=== PATIENT | female | born 1990 | race Caucasian/White ===

== ENCOUNTER → 2022-09-30 12:49 | Outpatient (BNVA) | payer OTHER, SELFPAY | PROVIDERS: Visit Provider Physician Assistant | DX: Z01.818 Encounter for other preprocedural examination (principal); E66.01 Morbid (severe) obesity due to excess calories; G89.29 Other chronic pain; F41.9 Anxiety disorder, unspecified; Z68.43 Body mass index [BMI] 50.0-59.9, adult | CPT/HCPCS: 99202 ==

== ENCOUNTER 2022-10-05 09:50 | Outpatient (REF) | payer OTHER, SELFPAY ==
--- NOTE | ~2022-10-05 | XR_ITS ---
EXAMINATION: XR CHEST CLINICAL INFORMATION: Bariatric service evaluation. E66.01. COMPARISON: None TECHNIQUE: 2 views of the chest were obtained. FINDINGS: Lungs clear. No hyperinflation. No airspace consolidation or groundglass opacity. The costophrenic sulci are clear. Heart size normal. Vascularity normal. The hilar and mediastinal contours are normal. Bony structures show mild loss of height due to adjacent mid thoracic vertebral bodies. No paraspinal soft tissue swelling. XR/XR chest 2V IMPRESSION: 1. Lungs clear. 2. Mild loss of height due to adjacent mid thoracic vertebral bodies. No paraspinal soft tissue swelling.
--- NOTE | 2022-10-05 09:59 | ECG_ITS ---
Test Reason : e66.01 Blood Pressure : / mmHG Vent. Rate : 073 BPM Atrial Rate : 073 BPM P-R Int : 134 ms QRS Dur : 074 ms QT Int : 390 ms P-R-T Axes : 023 050 044 degrees QTc Int : 429 ms Normal sinus rhythm with sinus arrhythmia Normal ECG No previous ECGs available Referred By: Juanita Rodriguez Electronically Signed By:TIFFANY VAUGHN MD
[2022-10-05 10:11] LABS: MANUAL DIFF FLAG NO
[2022-10-05 10:43] LABS: Basophils Percent Auto 0.4 % (0-2); Eosinophils Absolute Auto 0.2 X10*3/uL (0.0-0.4); Eosinophils Percent Auto 2.5 % (0-4); Hematocrit 40.5 % (37.0-47.0); Imm Gran Abs Auto 0.08 X10*3/uL (0.00-0.03); Lymphocytes Absolute Auto 1.9 X10*3/uL (1.2-4.9); Lymphocytes Percent Auto 22.3 % (20-40); Mean Corpuscular HGB Conc 32.1 g/dl (31.0-35.0); Mean Corpuscular Hemoglobin 28.9 pg (27.0-33.0); Mean Platelet Volume 9.6 fL (9.4-12.3); Monocytes Absolute Auto 0.5 X10*3/uL (0.1-1.2); Neutrophils Absolute Auto 5.7 x10*3/uL (2.0-8.3); Neutrophils Percent Auto 67.8 % (45-73); Platelet Count 388 X10*3/uL (160-400); Red Cell Distribution Width 12.2 % (11.0-16.0); White Blood Count 8.4 X10*3/uL (4.8-10.8)
[2022-10-05 11:43] LABS: Vitamin B12 339 pg/mL (200-900)
[2022-10-05 11:45] LABS: Estimated Average Glucose 108 mg/dL; Hemoglobin A1c % 5.4 %
[2022-10-05 11:52] LABS: Alanine Aminotransferase 19 U/L (0-31); Albumin Level 4.3 g/dL (3.5-5.0); Alkaline Phosphatase 79 U/L (39-117); Anion Gap 14 (12-20); Aspartate Amino Transferase 15 U/L (5-31); Bilirubin Total 0.3 mg/dL (0.0-1.0); Blood Urea Nitrogen 15 mg/dL (9-16); C Reactive Protein 0.58 mg/dL (< or = 0.50); Calcium 9.3 mg/dL (8.4-10.2); Carbon Dioxide 27 mmol/L (22-29); Chloride 104 mmol/L (96-108); Cholesterol 191 mg/dL; Estimated Glomerular Filt Rate > 60; Ferritin 118 ng/mL (10-122); Glucose Random 95 mg/dL (60-115); HDL Cholesterol 42 mg/dL; Insulin 22 uU/mL (2-29); Iron 78 mcg/dL (30-160); LDL Cholesterol Calculated 127 mg/dl; Percent Iron Saturation 26 % (15-50); Potassium 5.1 mmol/L (3.3-5.1); Sodium 140 mmol/L (135-145); TSH reflex Free T4 1.68 uIU/mL (0.32-4.0); Total Iron Binding Capacity 295 mcg/dL (228-428); Total Protein 7.5 g/dL (6.5-8.0); Triglycerides 112 mg/dL; Unsaturated Iron Binding 217 ug/dL; Vitamin D 25-OH Total 24.1 ng/mL (>30)
[2022-10-06 12:51] LABS: Calcium (PTHI) 9.4 mg/dL (8.6-10.2); PTHI 68 pg/mL (16-77)
[2022-10-08 00:21] LABS: Zinc 77 mcg/dL (60-130)
[2022-10-08 19:47] LABS: Vitamin A 54 mcg/dL (38-98)
[2022-10-12 11:52] LABS: Vitamin B1 12 nmol/L (8-30)
== END 2022-10-05 09:51 | disposition home or self-care (01) ==
LOC: HO.LAB 09:50
PROVIDERS: Visit Provider Physician Assistant
DX: Z01.818 Encounter for other preprocedural examination (principal); E66.01 Morbid (severe) obesity due to excess calories
CPT/HCPCS: 36415; 71046; 80053; 80061; 82306; 82607; 82728; 82746; 83036; 83525; 83540; 83970; 84425; 84443; 84590; 84630; 85025; 86140; 93005

== ENCOUNTER → 2022-11-11 09:48 | Outpatient (BNVA) | payer OTHER, SELFPAY | PROVIDERS: Visit Provider Physician Assistant | DX: Z11.0 Encounter for screening for intestinal infectious diseases (principal); E66.01 Morbid (severe) obesity due to excess calories; G89.29 Other chronic pain | CPT/HCPCS: 99211; 99212 ==

== ENCOUNTER 2022-11-11 15:16 | Outpatient (REF) | payer OTHER, SELFPAY ==
[2022-11-13 09:03] LABS: H Pylori Breath Test Negative (Negative)
== END 2022-11-11 15:17 | disposition home or self-care (01) ==
LOC: HO.LNP 15:16
PROVIDERS: Visit Provider Physician Assistant
DX: Z01.818 Encounter for other preprocedural examination (principal); E66.01 Morbid (severe) obesity due to excess calories
CPT/HCPCS: 83013

== ENCOUNTER → 2022-11-18 11:40 | Outpatient (BNVA) | payer OTHER, SELFPAY | PROVIDERS: Visit Provider Dietitian, Registered | DX: E66.01 Morbid (severe) obesity due to excess calories (principal) | CPT/HCPCS: 97802 ==

== ENCOUNTER → 2022-12-02 10:00 | Outpatient (BNVA) | payer OTHER, SELFPAY | PROVIDERS: Visit Provider Physician Assistant | DX: Z13.89 Encounter for screening for other disorder (principal) ==

== ENCOUNTER 2022-12-08 09:38 | Outpatient (REF) | payer OTHER, SELFPAY ==
--- NOTE | ~2022-12-08 | US_ITS ---
EXAMINATION: US COMPLETE ABDOMEN WITH LIVER ELASTOGRAPHY CLINICAL INFORMATION: Morbid obesity due to excess calories. COMPARISON: None. TECHNIQUE: Real-time imaging of the abdominal viscera. Noninvasive ultrasound liver fibrosis assessment is performed using Nancy ElastPQ point quantification shear wave elastography (2D-SWE) with a C5-2 MHz transducer. Multiple elastography samples are obtained. FINDINGS: PANCREAS: Normal. The visualized pancreatic head and body are normal in appearance. The remainder of the pancreas is obscured from visualization by the overlying bowel gas. ABDOMINAL AORTA: The proximal, middle, and distal aortic segments are normal in caliber. INFERIOR VENA CAVA: Visualized portions are normal. LIVER: Normal. The liver demonstrates normal size, contour and echogenicity. No focal lesion or intrahepatic biliary duct dilatation. The right lobe measures 19.6 cm in length. The left lobe measures 12.4 cm in length. Portal flow is hepatopedal. Shear wave liver elastography median stiffness is 1.58 m/s (reference: normal median stiffness is 1.3 m/s or less). IQR/median stiffness to assess sampling precision is 0.14 (reference: good quality data set is IQR/median stiffness of 0.15 or less). GALLBLADDER: There are multiple echogenic stones without wall thickening. The stones measure 2.1 x 0.9 x 2.2 cm and 2.3 x 0.8 x 2.1 cm. COMMON BILE DUCT: Normal in caliber measuring 0.4 cm in diameter. RIGHT KIDNEY: Normal. No hydronephrosis. No renal calculi or focal parenchymal lesions. The kidney measures 11.1 cm in maximum dimension. LEFT KIDNEY: Normal. No hydronephrosis. No renal calculi or focal parenchymal lesions. The kidney measures 11.5 cm in maximum dimension. SPLEEN: Normal. The spleen measures 9.8 cm in maximum dimension. FREE FLUID: None. US/US abdomen comp w elastography IMPRESSION: 1. Diffuse echogenic liver without focal lesion. 2. Cholelithiasis without wall thickening. 3. Liver elastography: Liver Elastography measures 1.58 m/s corresponding to cACLD (ruled out). REFERENCE: Society of Radiologists in Ultrasound Liver Stiffness Thresholds (2020): LIVER STIFFNESS THRESHOLDS: *Liver Stiffness equal or less than 1.3 m/s: High probability of being normal. *Liver Stiffness less than 1.7 m/s: In the absence of other known clinical signs, rules out compensated advanced chronic liver disease. *Liver Stiffness 1.7-2.1 m/s: Suggestive of compensated advanced chronic liver disease but need further test for confirmation. *Liver Stiffness over 2.1 m/s: Rules in compensated advanced chronic liver disease. *Liver Stiffness over 2.4 m/s: Suggestive of clinically significant portal hypertension. QUALITY OF DATA SET: *IQR/Median value equal or less than 0.15 implies a quality data set. *IQR/Median value over 0.15 implies a poor quality data set. SIGNIFICANT CHANGE FROM PRIOR EXAM: Significant change if liver stiffness measurement is 10% or greater from prior exam. OTHER CONSIDERATIONS: The stage of liver fibrosis may be overestimated in the setting of acute hepatitis, liver inflammation, elevated liver function tests, hepatic vascular congestion, obstructive cholestasis, non-fasting state, and infiltrative diseases such as amyloidosis and lymphoma. In some patients with NAFLD, the liver stiffness thresholds for compensated advanced chronic liver disease may be lower. In causes other than viral hepatitis and NAFLD, liver stiffness thresholds are not well established.
--- NOTE | ~2022-12-08 | FL_ITS ---
EXAMINATION: UPPER GI EXAMINATION XR CHEST, PA AND LATERAL CLINICAL INFORMATION: Preop. Morbid obesity. COMPARISON: None. TECHNIQUE: PA and lateral chest. Air-contrast upper GI examination. FINDINGS: There is no evidence of acute parenchymal disease, pneumothorax, or pleural effusion. Heart is normal size. No evidence of pulmonary edema. There is normal apposition of the focal cords while saying E. There is normal elevation of the soft palate while saying candy. Patient swallowed thin and thick barium and half-inch diameter barium tablet without difficulty. No nasopharyngeal reflux or tracheal aspiration identified. There is normal esophageal motility without evidence of persistent stricture or ulcerations/erosions. Minimal sliding hiatal hernia was identified. There is gastroesophageal reflux spontaneously during the study to the level of the thoracic inlet, which cleared readily. The stomach demonstrated normal distensibility without evidence of abnormal mass or ulceration. There was no delay in gastric emptying. The duodenal bulb and sweep appeared unremarkable. FLUOROSCOPY TIME: 1.6 minutes. DOSE AREA PRODUCT: 22.965 Gy-cm2 (moss-centimeter squared). FL/FL upper GI w air IMPRESSION: No acute parenchymal disease within the chest. Spontaneous gastroesophageal reflux to the level of the thoracic inlet, which cleared rapidly.
== END 2022-12-08 09:39 | disposition home or self-care (01) ==
LOC: HO.US 09:38
PROVIDERS: Visit Provider Physician Assistant
DX: Z01.818 Encounter for other preprocedural examination (principal); E66.01 Morbid (severe) obesity due to excess calories
CPT/HCPCS: 71046; 74246; 76705; 76981

== ENCOUNTER → 2022-12-09 13:00 | Outpatient (BNVA) | payer OTHER, SELFPAY | PROVIDERS: Visit Provider Counselor Mental Health | DX: F32.A Depression, unspecified (principal); F41.9 Anxiety disorder, unspecified; E66.01 Morbid (severe) obesity due to excess calories | CPT/HCPCS: 90791 ==

== ENCOUNTER → 2022-12-23 10:59 | Outpatient (BNVA) | payer OTHER, SELFPAY | PROVIDERS: Visit Provider Physician Assistant | DX: E66.01 Morbid (severe) obesity due to excess calories (principal); G89.29 Other chronic pain; F32.A Depression, unspecified ==

== ENCOUNTER → 2022-12-29 13:20 | Outpatient (BNVA) | payer OTHER, SELFPAY | PROVIDERS: PCP Registered Nurse; Visit Provider Counselor Mental Health | DX: F32.A Depression, unspecified (principal); F41.9 Anxiety disorder, unspecified; E66.01 Morbid (severe) obesity due to excess calories | CPT/HCPCS: 90834 ==

== ENCOUNTER → 2023-01-19 10:08 | Outpatient (BNVA) | payer OTHER, SELFPAY | PROVIDERS: PCP Registered Nurse; Referring Provider Registered Nurse; Visit Provider Counselor Mental Health | DX: F32.A Depression, unspecified (principal); F41.9 Anxiety disorder, unspecified; E66.01 Morbid (severe) obesity due to excess calories | CPT/HCPCS: 90834 ==

== ENCOUNTER → 2023-01-21 13:30 | Outpatient (BNVA) | payer OTHER, SELFPAY | PROVIDERS: PCP Registered Nurse; Visit Provider Physician Assistant | DX: Z13.89 Encounter for screening for other disorder (principal) ==

== ENCOUNTER → 2023-02-21 09:30 | Outpatient (BNVA) | payer MEDICAID, SELFPAY | PROVIDERS: PCP Registered Nurse; Visit Provider Physician Assistant ==

== ENCOUNTER → 2023-03-01 10:00 | Outpatient (BNVA) | payer OTHER, MEDICAID, SELFPAY | PROVIDERS: PCP Registered Nurse; Visit Provider Counselor Mental Health ==

== ENCOUNTER → 2023-03-14 11:30 | Outpatient (BNVA) | payer OTHER, MEDICAID, SELFPAY | PROVIDERS: PCP Registered Nurse; Visit Provider Counselor Mental Health ==

== ENCOUNTER → 2023-03-28 11:00 | Outpatient (BNVA) | payer OTHER, MEDICAID, SELFPAY | PROVIDERS: PCP Registered Nurse; Visit Provider Counselor Mental Health | DX: F32.A Depression, unspecified (principal); F41.9 Anxiety disorder, unspecified; E66.01 Morbid (severe) obesity due to excess calories ==

== ENCOUNTER → 2023-05-02 15:30 | Outpatient (BNVA) | payer MEDICAID, SELFPAY | PROVIDERS: PCP Registered Nurse; Visit Provider Physician Assistant ==

== ENCOUNTER → 2023-05-10 14:00 | Outpatient (BNVA) | payer OTHER, MEDICAID, SELFPAY | PROVIDERS: PCP Registered Nurse; Visit Provider Counselor Mental Health ==

== ENCOUNTER 2023-06-01 13:02 | Outpatient (AMB) | payer MEDICAID, SELFPAY ==
--- NOTE | 2023-06-01 11:28 | MHC.OFFVISWM ---
Intake VS Expanded 06/01/23 12:32 Height 5 ft 1 in Weight 283 lb BMI 53.5 Intake Visit Reasons: VIDEO F/U SWL Allergies No Known Allergies Allergy (Verified 11/11/22 10:30) HPI HPI Comments History of Present Illness Details 32 yo woman started our program?since Sep 2022 at 274.2 lbs and had gained 12 lbs since stopping our program. Was having family issues and personal issues, supposed to see Radha weekly but was unable to. She took a short break from our program and restarted on May 02 at 287 lbs. All pre operative work up completed except for appointments. she saw Radha on 05/12 and was supposed to have follow up - she texted Radha today to reschedule. meal plan: 9am - Ensure Alcides or Premier 1 pm - shake 4pm- shake OR fish and vegetables 8pm - - not having yogurt or bar Exercise - bike - 30 minutes twice a day, daily - hurt her right shoulder with this. Walking - distance? time? calories? not using her pedometer destini. Goal is 247 lbs before surgery PFSH Surgical History Hx of appendectomy Hx of carpal tunnel repair Hx of section Family History Mother No problems noted. Father No problems noted. Sister No problems noted. Sister No problems noted. Sister No problems noted. Sister No problems noted. Son Asthma Social History Alcohol intake: current Alcohol intake frequency: holidays/special occasions only Patient Tobacco Use Status: Never used Tobacco Substance Use Type: Marijuana Assessment & Plan Assessment & Plan (1) Morbid obesity: Code(s): E66.01 - Morbid (severe) obesity due to excess calories Plan: Pt has restarted meal plan - and has lost 4 lbs so far - goal weight is 247lbs lbs before surgery. Needs to ahve bar or yogurt at 8pm daily and meal daily, 2 shakes. Exercise - walk with pedometer destini 2 miles in 45 minutes for 300 calories burned daily. Wait until shoulder heals before using bike again - then once per day. Needs to have appt - if she does not hear back from Radha I told her to call the office to reschedule the appt. Next appt 3 weeks with me. Patient is still morbidly obese and is not considered stable at this time. I spent 30 minutes in total speaking with the patient via video conference counseling , reviewing records and charting in patients chart. . Telehealth Telehealth Location of provider rendering services: practice address Location of patient: address on file Patient Identification confirmed using: Name, : Yes Telehealth method: video Patient verbally consented to treatment: Yes Patient verbally consented to billing insurance company: Yes Patient informed of any privacy concerns related to visit: Yes Coding Level of Care Code Tele Est Pt Level 4 (99496) Diagnoses Morbid obesity E66.01
[2023-06-01 12:32] VITALS: BMI 53.5
== END 2023-06-01 13:07 | disposition home or self-care (01) ==
LOC: HO.HBS 13:02
PROVIDERS: PCP Registered Nurse; Visit Provider Physician Assistant
DX: E66.01 Morbid (severe) obesity due to excess calories (principal)
CPT/HCPCS: 99214

== ENCOUNTER 2023-06-28 15:33 | Outpatient (AMB) | payer MEDICAID, SELFPAY ==
--- NOTE | 2023-06-28 15:41 | MHC.WMTHER ---
Intake Intake Visit Reasons: VIDEO f/u Allergies No Known Allergies Allergy (Verified 11/11/22 10:30) PFSH Surgical History Hx of appendectomy Hx of carpal tunnel repair Hx of section Family History Mother No problems noted. Father No problems noted. Sister No problems noted. Sister No problems noted. Sister No problems noted. Sister No problems noted. Son Asthma Social History Alcohol intake: current Alcohol intake frequency: holidays/special occasions only Patient Tobacco Use Status: Never used Tobacco Substance Use Type: Marijuana Behavioral Health Assessment Weight Management Therapy Therapy Notes Details Patient has decided to not give up and restart the program. This session included motivational interviewing. Pt discussed what life could look like if she does not work on her health. She reported doing well since she restarted. . Patient is looking to have weight loss surgery to help improve her health and quality of life. She stated that due to depression because of her weight she was referred to a therapist at her primary care doctors office named Mariangel however has not seen her in a month. Also previous therapy at [facility] when she first moved here from [place]. No previous hospital admissions and no history of problems with drugs or alcohol. Presenting Concerns Referral Source provider Reason for referral weight loss surgery evaluation Precipitating Event obesity Living Situation Current Living Situation Rent At risk of losing current housing? No Satisfied with current living situation? Yes Comments Patient lives alone with her son who is 8 years old and also spends a lot of time with her boyfriend and helps care for his two kids. Food/Weight/Diet Expectations of change weight loss History/Relationship with food Patient reported that she cooks often and she was often eat rice, pasta, bread, meat, pizza and other fast food on the weekends, she would often skip meals during the day and then eat large portions for dinner and then corn flakes cereal after dinner prior to sleep. Also would drink juice daily. History/Relationship with weight Patient reported that she has always been overweight even as a child and was the only one in her family that is. Patient stated that at her lowest she was 198lbs when she first moved here in 2010. At her heaviest she was 299lbs. History/Relationship with dieting Patient attempted the [facility] Weight Loss program and lost around 60lbs however due to pandemic, she was not able to have the surgery. Binge Eating Do you frequently eat large amounts of food in short periods of time, not feeling physically hungry? No Do you feel out of control when you eat a large amount of food in a short period of time? No Do you eat large amounts of food rapidly and typically alone? Yes Night Eating Do you wake up at least once during the night to eat? No If you wake up in the night, do you find that it is necessary to eat something in order to fall back asleep? No Do you have little or no appetite in the morning and feel very hungry in the evening, often overeating between dinner and when you go to bed? Yes Social History Family history and relationship Patient reported being raised in [place] and stated that her father abandoned them. She stated that her mother was not around much, she did not work so Robert had to start working at age 11 to pay bills and take care of her family. 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 none Education Currently enrolled in educational program? No Interested in further educational program? 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 Employment Employment Status Unemployed Wants help to find employment? No Financial Situation Describe current financial situation Often struggles with finance Financial assistance? None Service Service? No Mental Health and Addiction Treatment Current/Past substance abuse? No Current/Past addictive behavior concerns? No Medical and Physical Health Summary Physical exam in the last year? Yes Pain Screening Current pain? Yes Pain in the last few months? Yes Comments knee pain Medications Is the patient compliant with medications? Not applicable Does the patient have Apple Guardian in place? Not applicable Does the patient use complimentary health approaches? No Trauma/Abuse History History of trauma? Yes Assessment & Plan Assessment & Plan (1) Depression: Code(s): F32.A - Depression, unspecified (2) Anxiety: Code(s): F41.9 - Anxiety disorder, unspecified (3) Morbid obesity: Code(s): E66.01 - Morbid (severe) obesity due to excess calories Plan Patients' life stressors have improved and she is now ready to commit to the program and have surgery. She will be seen again. Telehealth Telehealth Location of provider rendering services: practice address Location of patient: address on file Patient Identification confirmed using: Name, : Yes Telehealth method: video Patient verbally consented to treatment: Yes Patient verbally consented to billing insurance company: Yes Patient informed of any privacy concerns related to visit: Yes Minutes spent on Phone/Video with Pt.: 25 Coding Level of Care Code Tele Psytx 30 mins (36509) Diagnoses Depression F32.A Anxiety F41.9 Morbid obesity E66.01 Time Spent (min) 25
== END 2023-06-28 15:37 | disposition home or self-care (01) ==
LOC: HO.HBST 15:33
PROVIDERS: PCP Registered Nurse; Visit Provider Counselor Mental Health
DX: F32.A Depression, unspecified (principal); F41.9 Anxiety disorder, unspecified; E66.01 Morbid (severe) obesity due to excess calories
CPT/HCPCS: 90832

== ENCOUNTER → 2023-06-28 15:33 | Outpatient (BNVA) | payer MEDICAID, SELFPAY | PROVIDERS: PCP Registered Nurse; Visit Provider Counselor Mental Health ==

== ENCOUNTER 2023-07-19 13:03 | Outpatient (AMB) | payer MEDICAID, SELFPAY ==
--- NOTE | 2023-08-02 10:57 | A.OFFWM_ITS ---
Intake Intake Visit Reasons: VIDEO BH F/U Allergies No Known Allergies Allergy (Verified 11/11/22 10:30) PFSH Surgical History Hx of appendectomy Hx of carpal tunnel repair Hx of section Family History Mother No problems noted. Father No problems noted. Sister No problems noted. Sister No problems noted. Sister No problems noted. Sister No problems noted. Son Asthma Social History Alcohol intake: current Alcohol intake frequency: holidays/special occasions only Patient Tobacco Use Status: Never used Tobacco Substance Use Type: Marijuana Behavioral Health Assessment Weight Management Therapy Therapy Notes Details Patient continues to struggle, believes that now that her kids are in school she can really focus on herself. She was tearful in talking about her rel with her partner who children she has been raising along wth her son. She feels like she is being used, he would not be able to care for them if not for her. She wants to return back to her apartment but her son is very bonded with the other two kids and will be very hard for him. She feel lost on what to do. Patient is looking to have weight loss surgery to help improve her health and q uality of life. She stated that due to depression because of her weight she was referred to a therapist at her primary care doctors office named Mariangel however has not seen her in a month. Also previous therapy at [facility] when she first moved here from [place]. No previous hospital admissions and no history of problems with drugs or alcohol. Presenting Concerns Referral Source provider Reason for referral weight loss surgery evaluation Precipitating Event obesity Living Situation Current Living Situation Rent At risk of losing current housing? No Satisfied with current living situation? Yes Comments Patient lives alone with her son who is 8 years old and also spends a lot of time with her boyfriend and helps care for his two kids. Food/Weight/Diet Expectations of change weight loss History/Relationship with food Patient reported that she cooks often and she was often eat rice, pasta, bread, meat, pizza and other fast food on the weekends, she would often skip meals during the day and then eat large portions for dinner and then corn flakes cereal after dinner prior to sleep. Also would drink juice daily. History/Relationship with weight Patient reported that she has always been overweight even as a child and was the only one in her family that is. Patient stated that at her lowest she was 198lbs when she first moved here in 2010. At her heaviest she was 299lbs. History/Relationship with dieting Patient attempted the [facility] Weight Loss program and lost around 60lbs however due to pandemic, she was not able to have the surgery. Binge Eating Do you frequently eat large amounts of food in short periods of time, not feeling physically hungry? No Do you feel out of control when you eat a large amount of food in a short period of time? No Do you eat large amounts of food rapidly and typically alone? Yes Night Eating Do you wake up at least once during the night to eat? No If you wake up in the night, do you find that it is necessary to eat something in order to fall back asleep? No Do you have little or no appetite in the morning and feel very hungry in the evening, often overeating between dinner and when you go to bed? Yes Social History Family history and relationship Patient reported being raised in [place] and stated that her father abandoned them. She stated that her mother was not around much, she did not work so Robert had to start working at age 11 to pay bills and take care of her family. 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 none Education Currently enrolled in educational program? No Interested in further educational program? 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 Employment Employment Status Unemployed Wants help to find employment? No Financial Situation Describe current financial situation Often struggles with finance Financial assistance? None Service Service? No Mental Health and Addiction Treatment Current/Past substance abuse? No Current/Past addictive behavior concerns? No Medical and Physical Health Summary Physical exam in the last year? Yes Pain Screening Current pain? Yes Pain in the last few months? Yes Comments knee pain Medications Is the patient compliant with medications? Not applicable Does the patient have Apple Guardian in place? Not applicable Does the patient use complimentary health approaches? No Trauma/Abuse History History of trauma? Yes Assessment & Plan Assessment & Plan (1) Depression: Code(s): F32.A - Depression, unspecified (2) Anxiety: Code(s): F41.9 - Anxiety disorder, unspecified (3) Morbid obesity: Code(s): E66.01 - Morbid (severe) obesity due to excess calories Plan Patient is struggling with sig. life stressors that keep her awake at night and unable to focus on herself. She does not want to give up and is trying to continue with her goals in the program however has made minimal progress. She will be seen again. Telehealth Telehealth Location of provider rendering services: other Location of patient: other Patient Identification confirmed using: Name, : Yes Telehealth method: video Patient verbally consented to treatment: Yes Patient verbally consented to billing insurance company: Yes Patient informed of any privacy concerns related to visit: Yes Minutes spent on Phone/Video with Pt.: 40 Coding Level of Care Code Tele Psytx 45 mins (31247) Diagnoses Depression F32.A Anxiety F41.9 Morbid obesity E66.01 Time Spent (min) 40
== END 2023-08-02 10:57 | disposition home or self-care (01) ==
PROVIDERS: PCP Registered Nurse; Visit Provider Counselor Mental Health
DX: F32.A Depression, unspecified (principal); F41.9 Anxiety disorder, unspecified; E66.01 Morbid (severe) obesity due to excess calories
CPT/HCPCS: 90834

== ENCOUNTER → 2023-07-19 13:03 | Outpatient (BNVA) | payer MEDICAID, SELFPAY | PROVIDERS: PCP Registered Nurse; Visit Provider Counselor Mental Health ==

== ENCOUNTER 2023-08-11 15:30 | Outpatient (AMB) | payer MEDICAID, SELFPAY ==
--- NOTE | 2023-08-11 15:58 | A.OFFVIS_ITS ---
Intake Intake Visit Reasons: VIDEO F/U SWL Allergies No Known Allergies Allergy (Verified 11/11/22 10:30) HPI HPI Comments History of Present Illness Details [employer] appt 287 lbs, pre op completed. Is recovering from COVID, went off meal plan for 2 weeks, and no money for shakes. Re bought them on 08/01. Has a scale - but not weighing herself in 2 months. Radha appts weekly and follow up is scheduled. Meal plan 9am and 1pm - shakes 4:30 pm fish and vegetables 7:30 pm -yogurt Exercise - walking with her step mother. 30 minutes 3 d/ week. PFSH Surgical History Hx of appendectomy Hx of carpal tunnel repair Hx of section Family History Mother No problems noted. Father No problems noted. Sister No problems noted. Sister No problems noted. Sister No problems noted. Sister No problems noted. 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 Will send me her weight electronically tomorrow. Will continue appts with Radha - finds them very helpful. No changes to meal plan. Exercise - will increase once she is recovered from COVID. Next appt with me in 3 weeks. Patient is still morbidly obese and is not considered stable at this time. I spent 15 minutes in total speaking with the patient via video conference counseling , reviewing records and charting in patients chart. . Telehealth Telehealth Location of provider rendering services: practice address Location of patient: address on file Patient Identification confirmed using: Name, : Yes Telehealth method: voice only Patient verbally consented to treatment: Yes Patient verbally consented to billing insurance company: Yes Coding Level of Care Code Tele Est Pt Level 3 (38869) Diagnoses Morbid obesity E66.01
== END 2023-08-11 16:08 | disposition home or self-care (01) ==
LOC: HO.HBS 15:59
PROVIDERS: PCP Registered Nurse; Visit Provider Physician Assistant
DX: E66.01 Morbid (severe) obesity due to excess calories (principal)
CPT/HCPCS: 99213

== ENCOUNTER → 2023-08-11 15:30 | Outpatient (BNVA) | payer MEDICAID, SELFPAY | PROVIDERS: PCP Registered Nurse; Visit Provider Physician Assistant ==

== ENCOUNTER 2023-09-15 16:00 | Outpatient (AMB) | payer MEDICAID, SELFPAY ==
--- NOTE | 2023-09-15 16:24 | MHC.OFFVISWM ---
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 Has had a migraine for 3 days without relief, not in good place mentally not following our meal or exercise plans and has gained weight. Wants to fidn a therapist abut states no one is calling her back. Radha appts weekly previously, none recently. PFSH Surgical History Hx of appendectomy Hx of carpal tunnel repair Hx of section Family History Mother No problems noted. Father No problems noted. Sister No problems noted. Sister No problems noted. Sister No problems noted. Sister No problems noted. Son Asthma Social History Alcohol intake: current Alcohol intake frequency: holidays/special occasions only Patient Tobacco Use Status: Never used Tobacco Substance Use Type: Marijuana Physical Exam Vital Signs: BMI result Body Mass Index 54.8 Assessment & Plan Assessment & Plan (1) Morbid obesity: Code(s): E66.01 - Morbid (severe) obesity due to excess calories Plan: Meal and exercise plans were not discussed today. She is being scheduled for a follow up with Radha and is in need of longer term therapy per her request. Will resume SWL program when she feels ready. Patient is still morbidly obese and is not considered stable at this time. I spent 15 minutes in total speaking with the patient via video conference counseling , reviewing records and charting in patients chart. . (2) Depression: Code(s): F32.A - Depression, unspecified Coding Level of Care Code Tele Est Pt Level 3 (46418) Diagnoses Morbid obesity E66.01 Depression F32.A
[2023-09-15 16:26] VITALS: BMI 54.8
== END 2023-09-15 16:55 | disposition home or self-care (01) ==
LOC: HO.HBS 16:29
PROVIDERS: PCP Registered Nurse; Visit Provider Physician Assistant
DX: E66.01 Morbid (severe) obesity due to excess calories (principal); F32.A Depression, unspecified
CPT/HCPCS: 99213

== ENCOUNTER → 2023-09-15 16:00 | Outpatient (BNVA) | payer MEDICAID, SELFPAY | PROVIDERS: PCP Registered Nurse; Visit Provider Physician Assistant | DX: E66.01 Morbid (severe) obesity due to excess calories (principal) ==

== ENCOUNTER 2023-11-28 11:00 | Outpatient (AMB) | payer MEDICAID, SELFPAY ==
--- NOTE | 2023-11-28 10:50 | MHC.OFFVISWM ---
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 She has not been seen by a provider in our program since then and is scheduled for Nov 30. Has restarted meal plan on November 21. Pre op work up was completed previousl 9am - Premeir RTD shake 1pm - same shake 4-5pm - fish and vegetables - not measured Exercise - plans to start this week at the gym [facility] Surgical History Hx of appendectomy Hx of carpal tunnel repair Hx of section Family History Mother No problems noted. Father No problems noted. Sister No problems noted. Sister No problems noted. Sister No problems noted. Sister No problems noted. Son Asthma Social History Alcohol intake: current Alcohol intake frequency: holidays/special occasions only Patient Tobacco Use Status: Never used Tobacco Substance Use Type: Marijuana Assessment & Plan Assessment & Plan (1) Morbid obesity: Code(s): E66.01 - Morbid (severe) obesity due to excess calories Plan: 9am - will switch to Premeir powder with water 1 pm- same shake 5 pm - 12 forks of protein and 12 forks of vegetables 8pm- last shake Gym - treadmill - speed 2.5, incline 1 - 4 (3 minutes) - 300 calories - 5d/ week. 2 d/wk MM videos 30 minutes. Text me weekly weights and questions. Next appt 1 month video with me - will need labs reordered etc... when progressing. Patient is still morbidly obese and is not considered stable at this time. I spent 25 minutes in total speaking with the patient via video conference counseling , reviewing records and charting in patients chart. . (2) Depression: Code(s): F32.A - Depression, unspecified Plan: has appt with Radha in 2 days, follow up per Radha Telehealth Telehealth Location of provider rendering services: practice address Location of patient: address on file Patient Identification confirmed using: Name, : Yes Telehealth method: video Patient verbally consented to treatment: Yes Patient verbally consented to billing insurance company: Yes Patient informed of any privacy concerns related to visit: Yes Coding Level of Care Code Tele Est Pt Level 4 (99617) Diagnoses Morbid obesity E66.01 Depression F32.A
[2023-11-28 11:03] VITALS: BMI 57.6
== END 2023-11-28 11:15 | disposition home or self-care (01) ==
LOC: HO.HBS 11:13
PROVIDERS: PCP Registered Nurse; Visit Provider Physician Assistant
DX: E66.01 Morbid (severe) obesity due to excess calories (principal); F32.A Depression, unspecified
CPT/HCPCS: 99214

== ENCOUNTER → 2023-11-28 11:00 | Outpatient (BNVA) | payer MEDICAID, SELFPAY | PROVIDERS: PCP Registered Nurse; Visit Provider Physician Assistant ==

== ENCOUNTER 2023-11-30 12:43 | Outpatient (AMB) | payer MEDICAID, SELFPAY ==
--- NOTE | 2023-12-09 13:10 | MHC.WMTHER ---
Intake Intake Visit Reasons: VIDEO BH F/U Allergies No Known Allergies Allergy (Verified 11/11/22 10:30) PFSH Surgical History Hx of appendectomy Hx of carpal tunnel repair Hx of section Family History Mother No problems noted. Father No problems noted. Sister No problems noted. Sister No problems noted. Sister No problems noted. Sister No problems noted. Son Asthma Social History Alcohol intake: current Alcohol intake frequency: holidays/special occasions only Patient Tobacco Use Status: Never used Tobacco Substance Use Type: Marijuana Behavioral Health Assessment Weight Management Therapy Therapy Notes Details Patient has been sick, continues to work on meeting her goals within the program. Spoke extensively about her why and the effects of letting herself go, feeling unhealthy and depressed. Patient is looking to have weight loss surgery to help improve her health and quality of life. She stated that due to depression because of her weight she was referred to a therapist at her primary care doctors office named Mariangel however has not seen her in a month. Also previous therapy at [facility] when she first moved here from [place]. No previous hospital admissions and no history of problems with drugs or alcohol. Presenting Concerns Referral Source provider Reason for referral weight loss surgery evaluation Precipitating Event obesity Living Situation Current Living Situation Rent At risk of losing current housing? No Satisfied with current living situation? Yes Comments Patient lives alone with her son who is 8 years old and also spends a lot of time with her boyfriend and helps care for his two kids. Food/Weight/Diet Expectations of change weight loss History/Relationship with food Patient reported that she cooks often and she was often eat rice, pasta, bread, meat, pizza and other fast food on the weekends, she would often skip meals during the day and then eat large portions for dinner and then corn flakes cereal after dinner prior to sleep. Also would drink juice daily. History/Relationship with weight Patient reported that she has always been overweight even as a child and was the only one in her family that is. Patient stated that at her lowest she was 198lbs when she first moved here in 2010. At her heaviest she was 299lbs. History/Relationship with dieting Patient attempted the [facility] Weight Loss program and lost around 60lbs however due to pandemic, she was not able to have the surgery. Binge Eating Do you frequently eat large amounts of food in short periods of time, not feeling physically hungry? No Do you feel out of control when you eat a large amount of food in a short period of time? No Do you eat large amounts of food rapidly and typically alone? Yes Night Eating Do you wake up at least once during the night to eat? No If you wake up in the night, do you find that it is necessary to eat something in order to fall back asleep? No Do you have little or no appetite in the morning and feel very hungry in the evening, often overeating between dinner and when you go to bed? Yes Social History Family history and relationship Patient reported being raised in [place] and stated that her father abandoned them. She stated that her mother was not around much, she did not work so Robert had to start working at age 11 to pay bills and take care of her family. 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 none Education Currently enrolled in educational program? No Interested in further educational program? 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 Employment Employment Status Unemployed Wants help to find employment? No Financial Situation Describe current financial situation Often struggles with finance Financial assistance? None Service Service? No Mental Health and Addiction Treatment Current/Past substance abuse? No Current/Past addictive behavior concerns? No Medical and Physical Health Summary Physical exam in the last year? Yes Pain Screening Current pain? Yes Pain in the last few months? Yes Comments knee pain Medications Is the patient compliant with medications? Not applicable Does the patient have Apple Guardian in place? Not applicable Does the patient use complimentary health approaches? No Trauma/Abuse History History of trauma? Yes Assessment & Plan Assessment & Plan (1) Depression: Code(s): F32.A - Depression, unspecified (2) Anxiety: Code(s): F41.9 - Anxiety disorder, unspecified (3) Morbid obesity: Code(s): E66.01 - Morbid (severe) obesity due to excess calories Plan Patient is struggling with sig. life stressors that keep her awake at night and unable to focus on herself. She does not want to give up and is trying to continue with her goals in the program however has made minimal progress. She will be seen again. Telehealth Telehealth Location of provider rendering services: other Location of patient: address on file Patient Identification confirmed using: Name, : Yes Telehealth method: voice only Patient verbally consented to treatment: Yes Patient verbally consented to billing insurance company: Yes Patient informed of any privacy concerns related to visit: Yes Minutes spent on Phone/Video with Pt.: 25 Coding Level of Care Code Tele Psytx 30 mins (92696) Diagnoses Depression F32.A Anxiety F41.9 Morbid obesity E66.01 Time Spent (min) 25
== END 2023-12-09 13:10 | disposition home or self-care (01) ==
PROVIDERS: PCP Registered Nurse; Visit Provider Counselor Mental Health
DX: F32.A Depression, unspecified (principal); F41.9 Anxiety disorder, unspecified; E66.01 Morbid (severe) obesity due to excess calories
CPT/HCPCS: 90832

== ENCOUNTER → 2023-11-30 12:43 | Outpatient (BNVA) | payer MEDICAID, SELFPAY | PROVIDERS: PCP Registered Nurse; Visit Provider Counselor Mental Health ==

== ENCOUNTER 2023-12-14 10:26 | Outpatient (AMB) | payer OTHER, SELFPAY ==
--- NOTE | 2023-12-19 10:54 | A.OFFWM_ITS ---
Intake Intake Visit Reasons: (OV) BH F/U Allergies No Known Allergies Allergy (Verified 11/11/22 10:30) PFSH Surgical History Hx of appendectomy Hx of carpal tunnel repair Hx of section Family History Mother No problems noted. Father No problems noted. Sister No problems noted. Sister No problems noted. Sister No problems noted. Sister No problems noted. Son Asthma Social History Alcohol intake: current Alcohol intake frequency: holidays/special occasions only Patient Tobacco Use Status: Never used Tobacco Substance Use Type: Marijuana Behavioral Health Assessment Weight Management Therapy Therapy Notes Details Patient discussed her struggles with her weight and her health. Feels very motivated at this time. Discussed how lonely she is, has only had this newswriter to talk to, relationship difficulties, feeling trapped due to raising her partners children who are bonded with her son. limited supports. Patient is looking to have weight loss surgery to help improve her health and quality of life. She stated that due to depression because of her weight she was referred to a therapist at her primary care doctors office named Mariangel however has not seen her in a month. Also previous therapy at [facility] when she first moved here from [place]. No previous hospital admissions and no history of problems with drugs or alcohol. Presenting Concerns Referral Source provider Reason for referral weight loss surgery evaluation Precipitating Event obesity Living Situation Current Living Situation Rent At risk of losing current housing? No Satisfied with current living situation? Yes Comments Patient lives alone with her son who is 8 years old and also spends a lot of time with her boyfriend and helps care for his two kids. Food/Weight/Diet Expectations of change weight loss History/Relationship with food Patient reported that she cooks often and she was often eat rice, pasta, bread, meat, pizza and other fast food on the weekends, she would often skip meals during the day and then eat large portions for dinner and then corn flakes cereal after dinner prior to sleep. Also would drink juice daily. History/Relationship with weight Patient reported that she has always been overweight even as a child and was the only one in her family that is. Patient stated that at her lowest she was 198lbs when she first moved here in 2010. At her heaviest she was 299lbs. History/Relationship with dieting Patient attempted the [facility] Weight Loss program and lost around 60lbs however due to pandemic, she was not able to have the surgery. Binge Eating Do you frequently eat large amounts of food in short periods of time, not feeling physically hungry? No Do you feel out of control when you eat a large amount of food in a short period of time? No Do you eat large amounts of food rapidly and typically alone? Yes Night Eating Do you wake up at least once during the night to eat? No If you wake up in the night, do you find that it is necessary to eat something in order to fall back asleep? No Do you have little or no appetite in the morning and feel very hungry in the evening, often overeating between dinner and when you go to bed? Yes Social History Family history and relationship Patient reported being raised in [place] and stated that her father abandoned them. She stated that her mother was not around much, she did not work so Robert had to start working at age 11 to pay bills and take care of her family. 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 none Education Currently enrolled in educational program? No Interested in further educational program? 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 Employment Employment Status Unemployed Wants help to find employment? No Financial Situation Describe current financial situation Often struggles with finance Financial assistance? None Service Service? No Mental Health and Addiction Treatment Current/Past substance abuse? No Current/Past addictive behavior concerns? No Medical and Physical Health Summary Physical exam in the last year? Yes Pain Screening Current pain? Yes Pain in the last few months? Yes Comments knee pain Medications Is the patient compliant with medications? Not applicable Does the patient have Apple Guardian in place? Not applicable Does the patient use complimentary health approaches? No Trauma/Abuse History History of trauma? Yes Assessment & Plan Assessment & Plan (1) Depression: Code(s): F32.A - Depression, unspecified (2) Anxiety: Code(s): F41.9 - Anxiety disorder, unspecified (3) Morbid obesity: Code(s): E66.01 - Morbid (severe) obesity due to excess calories Plan Patient is struggling with sig. life stressors that keep her awake at night and unable to focus on herself. She does not want to give up and is trying to continue with her goals in the program however has made minimal progress. Extensive motivation interviewing was used, discussed what her life could look like if she does not do this, active and supportive listening, cognitive restructuring. Coding Level of Care Code Psytx 45 mins (60102) Diagnoses Depression F32.A Anxiety F41.9 Morbid obesity E66.01 Time Spent (min) 45
== END 2023-12-19 10:54 | disposition home or self-care (01) ==
PROVIDERS: PCP Registered Nurse; Visit Provider Counselor Mental Health
DX: F32.A Depression, unspecified (principal); F41.9 Anxiety disorder, unspecified; E66.01 Morbid (severe) obesity due to excess calories
CPT/HCPCS: 90834

== ENCOUNTER → 2023-12-14 10:26 | Outpatient (BNVA) | payer MEDICAID, SELFPAY | PROVIDERS: PCP Registered Nurse; Visit Provider Counselor Mental Health | DX: F32.A Depression, unspecified (principal); F41.9 Anxiety disorder, unspecified; E66.01 Morbid (severe) obesity due to excess calories | CPT/HCPCS: 90834 ==

== ENCOUNTER 2023-12-28 13:45 | Outpatient (AMB) | payer OTHER, SELFPAY ==
--- NOTE | 2024-01-07 11:28 | A.OFFWM_ITS ---
Intake Intake Visit Reasons: VIDEO BH F/U Allergies No Known Allergies Allergy (Verified 11/11/22 10:30) PFSH Surgical History Hx of appendectomy Hx of carpal tunnel repair Hx of section Family History Mother No problems noted. Father No problems noted. Sister No problems noted. Sister No problems noted. Sister No problems noted. Sister No problems noted. Son Asthma Social History Alcohol intake: current Alcohol intake frequency: holidays/special occasions only Patient Tobacco Use Status: Never used Tobacco Substance Use Type: Marijuana Behavioral Health Assessment Weight Management Therapy Therapy Notes Details Patient discussed her struggles with her weight and her health. Feels very motivated at this time. Discussed how lonely she is, has only had this pattern chart writer to talk to, relationship difficulties, feeling trapped due to raising her partners children who are bonded with her son. limited supports. Recently has been sick, sticking to meal plan and feeling discouraged that the scale has not changed. Patient is looking to have weight loss surgery to help improve her health and quality of life. She stated that due to depression because of her weight she was referred to a therapist at her primary care doctors office named Mariangel however has not seen her in a month. Also previous therapy at [facility] when she first moved here from [place]. No previous hospital admissions and no history of problems with drugs or alcohol. Presenting Concerns Referral Source provider Reason for referral weight loss surgery evaluation Precipitating Event obesity Living Situation Current Living Situation Rent At risk of losing current housing? No Satisfied with current living situation? Yes Comments Patient lives alone with her son who is 8 years old and also spends a lot of time with her boyfriend and helps care for his two kids. Food/Weight/Diet Expectations of change weight loss History/Relationship with food Patient reported that she cooks often and she was often eat rice, pasta, bread, meat, pizza and other fast food on the weekends, she would often skip meals during the day and then eat large portions for dinner and then corn flakes cereal after dinner prior to sleep. Also would drink juice daily. History/Relationship with weight Patient reported that she has always been overweight even as a child and was the only one in her family that is. Patient stated that at her lowest she was 198lbs when she first moved here in 2010. At her heaviest she was 299lbs. History/Relationship with dieting Patient attempted the [facility] Weight Loss program and lost around 60lbs however due to pandemic, she was not able to have the surgery. Binge Eating Do you frequently eat large amounts of food in short periods of time, not feeling physically hungry? No Do you feel out of control when you eat a large amount of food in a short period of time? No Do you eat large amounts of food rapidly and typically alone? Yes Night Eating Do you wake up at least once during the night to eat? No If you wake up in the night, do you find that it is necessary to eat something in order to fall back asleep? No Do you have little or no appetite in the morning and feel very hungry in the evening, often overeating between dinner and when you go to bed? Yes Social History Family history and relationship Patient reported being raised in [place] and stated that her father abandoned them. She stated that her mother was not around much, she did not work so Robert had to start working at age 11 to pay bills and take care of her family. 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 none Education Currently enrolled in educational program? No Interested in further educational program? 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 Employment Employment Status Unemployed Wants help to find employment? No Financial Situation Describe current financial situation Often struggles with finance Financial assistance? None Service Service? No Mental Health and Addiction Treatment Current/Past substance abuse? No Current/Past addictive behavior concerns? No Medical and Physical Health Summary Physical exam in the last year? Yes Pain Screening Current pain? Yes Pain in the last few months? Yes Comments knee pain Medications Is the patient compliant with medications? Not applicable Does the patient have Apple Guardian in place? Not applicable Does the patient use complimentary health approaches? No Trauma/Abuse History History of trauma? Yes Assessment & Plan Assessment & Plan (1) Depression: Code(s): F32.A - Depression, unspecified (2) Anxiety: Code(s): F41.9 - Anxiety disorder, unspecified (3) Morbid obesity: Code(s): E66.01 - Morbid (severe) obesity due to excess calories Plan Patient is struggling with sig. life stressors that keep her awake at night and unable to focus on herself. She does not want to give up and is trying to continue with her goals in the program however has made minimal progress. Extensive motivation interviewing was used, discussed what her life could look like if she does not do this, active and supportive listening, cognitive restructuring. Telehealth Telehealth Location of provider rendering services: other Location of patient: other Patient Identification confirmed using: Name, : Yes Telehealth method: voice only Patient verbally consented to treatment: Yes Patient verbally consented to billing insurance company: Yes Patient informed of any privacy concerns related to visit: Yes Minutes spent on Phone/Video with Pt.: 40 Coding Level of Care Code Tele Psytx 45 mins (98071) Diagnoses Depression F32.A Anxiety F41.9 Morbid obesity E66.01 Time Spent (min) 40
== END 2024-01-07 11:28 | disposition home or self-care (01) ==
LOC: HO.HBST 13:46
PROVIDERS: PCP Registered Nurse; Visit Provider Counselor Mental Health
DX: F33.2 Major depressive disorder, recurrent severe without psychotic features (principal); F41.9 Anxiety disorder, unspecified; E66.01 Morbid (severe) obesity due to excess calories
CPT/HCPCS: 90834

== ENCOUNTER → 2023-12-28 13:45 | Outpatient (BNVA) | payer OTHER, MEDICAID, SELFPAY | PROVIDERS: PCP Registered Nurse; Visit Provider Counselor Mental Health | DX: F32.A Depression, unspecified (principal); F41.9 Anxiety disorder, unspecified; E66.01 Morbid (severe) obesity due to excess calories ==